=== PATIENT | female | born 1955 | race American Indian/Alaskan Native ===

== ENCOUNTER → 2016-12-21 | Outpatient (CLI) | payer OTHER | END | disposition home or self-care (01) | LOC: CFH 13:10 | PROVIDERS: ATTEND Family Medicine | DX: Z02.9 Encounter for administrative examinations, unspecified (principal) ==

== ENCOUNTER → 2017-12-28 | Outpatient (CLI) | payer OTHER | END | disposition home or self-care (01) | LOC: CFH 13:39 | PROVIDERS: ATTEND Licensed Practical Nurse | DX: Z12.31 Encounter for screening mammogram for malignant neoplasm of breast (principal); Z12.2 Encounter for screening for malignant neoplasm of respiratory organs; Z87.891 Personal history of nicotine dependence | CPT/HCPCS: 77067; G0297 ==

== ENCOUNTER 2018-01-26 07:15 | Inpatient (IN) | payer OTHER ==
[2018-01-19 11:17] VITALS: BP 119/83
[2018-01-25 10:55] LABS: BASOPHILS # (AUTO) 0.04 x10^3/uL (0-0.1); BASOPHILS % (AUTO) 0 % (0-1); EOSINOPHILS # (AUTO) 0.11 x10^3/uL (0-0.4); EOSINOPHILS % (AUTO) 1 % (1-7); LYMPHOCYTES # (AUTO) 4.29 x10^3/uL (1-3.4); LYMPHOCYTES % (AUTO) 27 % (22-44); MD NO; MEAN CORPUSCULAR HEMOGLOBIN 29.8 pg (27.0-34.8); MEAN CORPUSCULAR HGB CONC 33.1 g/dL (32.4-35.8); MEAN CORPUSCULAR VOLUME 90.2 fL (80-100); MEAN PLATELET VOLUME 8.6 fL (7.4-10.4); MONOCYTES # (AUTO) 0.76 x10^3/uL (0.2-0.8); MONOCYTES % (AUTO) 5 % (2-9); NEUTROPHILS # (AUTO) 10.69 x10^3/uL (1.8-6.8); NEUTROPHILS % (AUTO) 67 % (42-75); PLATELET COUNT 245 x10^3/uL (130-400); RED BLOOD COUNT 4.88 x10^6/uL (3.82-5.3); RED CELL DISTRIBUTION WIDTH 13.6 % (9.6-15.2)
[~2018-01-26] VITALS: Ht 142.2 cm; Wt 90.0 kg
[~2018-01-26 07:15] MED LIST: ASPI-691 PO; BUPR100T11 PO; GABA300C10 PO; OXYC10TA6 PO; PHEN37.53 PO; QUET25TA PO
[2018-01-26] MEDS ORDERED: MIDAZOLAM 1 MG/ML, 2ML ONE ×2 (07:43→12:00)
[2018-01-26] MEDS ORDERED: FENTANYL PF 250 MCG/5ML ONE (07:44)
[2018-01-26] MEDS: LACTATED RINGERS 1,000 ML IV SCH ×2 (08:12→13:42)
[2018-01-26] MEDS ORDERED: OxyconTIN ER 10 MG TAB.ER PO ONE (09:30)
[2018-01-26] MEDS ORDERED: FAMOTIDINE 20 MG TABLET PO ONE (09:30)
[2018-01-26] MEDS ORDERED: GABAPENTIN 300 MG CAPSULE PO ONE (09:30)
[2018-01-26] MEDS ORDERED: ACETAMINOPHEN 500 MG TABLET PO ONE (09:30)
[2018-01-26] MEDS ORDERED: CEFAZOLIN 1,000 MG ONE (09:31)
[2018-01-26] MEDS ORDERED: DEXAMETHASONE 4 MG/ML, 1ML ONE (09:31)
[2018-01-26] MEDS ORDERED: GLYCOPYRROLATE 0.2MG/1ML, 5ML ONE (09:31)
[2018-01-26] MEDS ORDERED: NEOSTIGMINE 1 MG/ML, 10ML ONE (09:31)
[2018-01-26] MEDS ORDERED: LIDOCAINE GEL 2%, 5ML ONE ×2 (09:31)
[2018-01-26] MEDS ORDERED: PROPOFOL 10 MG/ML, 20ML ONE (09:31)
[2018-01-26] MEDS ORDERED: SUCCINYLCHOLINE 20 MG/ML, 10ML ONE (09:31)
[2018-01-26] MEDS ORDERED: ONDANSETRON 2MG/ML, 2ML ONE (09:31)
[2018-01-26] MEDS ORDERED: ROCURONIUM 10MG/ML,5ML ONE (09:31)
[2018-01-26] MEDS ORDERED: PHENYLEPHRINE 10 MG/ML ONE (09:45)
[2018-01-26] MEDS ORDERED: BUPIVACAINE/PF-EPI 0.5% 1:200K INFIL ONE (10:31)
[2018-01-26] MEDS ORDERED: THROMBIN 5,000 UNIT VIAL TP ONE (10:32)
[2018-01-26] MEDS ORDERED: BACITRACIN 50,000 UNIT IRRIG ONE (10:32)
[2018-01-26] MEDS: FENTANYL PF 100 MCG/2ML IV PRN ×2 (11:59→12:10)
[2018-01-26] MEDS ORDERED: HYDROmorphone 2 MG/ML, 1ML ONE (12:00)
[2018-01-26] MEDS ORDERED: FENTANYL PF 100 MCG/2ML ONE (12:00)
[2018-01-26] MEDS ORDERED: OXYcodone 5 MG/5 ML ORAL.SOL UDC ONE (12:00)
[2018-01-26] MEDS: HYDROmorphone 2 MG/ML, 1ML IV PRN ×4 (12:05→13:42)
[2018-01-26] MEDS ORDERED: LABETALOL 5MG/ML, 20ML ONE (12:29)
[2018-01-26] MEDS ORDERED: D5%-0.9% NACL+KCL 20MEQ 1,000 ML IV SCH (12:30)
[2018-01-26] MEDS ORDERED: PROMETHAZINE 25 MG/ML, 1ML IM PRN (12:30)
[2018-01-26] MEDS ORDERED: hydrALAzine 20 MG/ML, 1ML IV PRN (12:30)
[2018-01-26] MEDS ORDERED: DIPHENHYDRAMINE 50 MG/ML, 1ML IVPush PRN (12:30)
[2018-01-26] MEDS ORDERED: DIPHENHYDRAMINE 50 MG CAPSULE PO PRN (12:30)
[2018-01-26] MEDS ORDERED: PROMETHAZINE 25 MG/ML, 1ML IV PRN (12:30)
[2018-01-26] MEDS ORDERED: PHARMACY MAY ADJ FOR RENAL FX MC PRN (12:30)
[2018-01-26] MEDS ORDERED: SENNA/DOCUSATE TABLET PO PRN (12:30)
[2018-01-26] MEDS ORDERED: INSULIN REGULAR 100 UNITS/ML, 3ML VIAL SQ-INSULIN PRN (12:30)
[2018-01-26] MEDS ORDERED: LABETALOL 5MG/ML, 20ML IV PRN (12:30)
[2018-01-26] MEDS ORDERED: ONDANSETRON 2MG/ML, 2ML IVPush PRN (12:30)
[2018-01-26] MEDS ORDERED: ONDANSETRON ODT 8 MG PO PRN (12:30)
[2018-01-26] MEDS ORDERED: BISACODYL 10 MG SUPP PR PRN (12:30)
[2018-01-26] MEDS ORDERED: HYDROcodone/APAP 5/325 TABLET PO PRN (12:30)
[2018-01-26] MEDS ORDERED: MIDAZOLAM 1 MG/ML, 2ML IV PRN (12:30)
[2018-01-26] MEDS ORDERED: OXYcodone 5 MG/5 ML ORAL.SOL UDC PO PRN (12:30)
[2018-01-26] MEDS ORDERED: MAGNESIUM HYDROXIDE 8%, 30ML UDC PO PRN (12:30)
[2018-01-26] MEDS ORDERED: CYCLOBENZAPRINE 10 MG TABLET PO PRN (12:30)
[2018-01-26] MEDS ORDERED: CEFAZOLIN PMX 1GM/50ML 50 ML IVPB SCH (12:30)
[2018-01-26] MEDS ORDERED: MORPHINE SULFATE 4 MG/ML, 1ML IVPush PRN (12:30)
[2018-01-26] MEDS ORDERED: LABETALOL 5MG/ML, 20ML IVPush PRN (12:30)
[2018-01-26 14:00] VITALS: BP 108/75
[2018-01-26] MEDS: GABAPENTIN 300 MG CAPSULE PO SCH ×2 (14:50→20:32)
[2018-01-26] MEDS: OXYcodone/APAP 5/325MG TABLET PO PRN ×2 (15:52→20:32)
[2018-01-26] MEDS: SODIUM CHLORIDE 0.9% 1,000 ML IV SCH (16:06)
[2018-01-26] MEDS: CEFAZOLIN PMX 1GM/50ML 50 ML IVPB SCH (17:30)
[2018-01-26] MEDS: morphine SULFATE 10 MG/ML, 1ML IVPush PRN (19:03)
[2018-01-26 20:00] VITALS: BP 119/71
[2018-01-26] MEDS: INSULIN REGULAR 100 UNITS/ML, 3ML VIAL SQ-INSULIN PRN (20:30)
[2018-01-26] MEDS: BUPROPION 100 MG TABLET PO SCH (20:32)
[2018-01-26] MEDS: SODIUM CHLORIDE FLUSH 10ML SYR IVF SCH (21:00)
[2018-01-26] MEDS ORDERED: QUETIAPINE 25MG TABLET PO SCH (21:00)
[2018-01-27] MEDS: morphine SULFATE 10 MG/ML, 1ML IVPush PRN (00:05)
[2018-01-27] MEDS: OXYcodone/APAP 5/325MG TABLET PO PRN ×4 (02:23→15:26)
[2018-01-27] MEDS: CEFAZOLIN PMX 1GM/50ML 50 ML IVPB SCH (02:23)
[2018-01-27 03:45] VITALS: BP 99/64
[2018-01-27] MEDS: SODIUM CHLORIDE 0.9% 1,000 ML IV SCH (06:12)
[2018-01-27] MEDS: GABAPENTIN 300 MG CAPSULE PO SCH ×2 (06:12→14:37)
[2018-01-27] MEDS: INSULIN REGULAR 100 UNITS/ML, 3ML VIAL SQ-INSULIN PRN (06:20)
[2018-01-27 07:46] VITALS: BP 109/65
[2018-01-27] MEDS: BUPROPION 100 MG TABLET PO SCH (07:56)
[2018-01-27] MEDS: SODIUM CHLORIDE FLUSH 10ML SYR IVF SCH (07:56)
[2018-01-27] MEDS ORDERED: ENOXAPARIN 40 MG/0.4 ML SQ SCH (09:00)
[2018-01-27] MEDS ORDERED: PHENTERMINE HCL 37.5 MG HOMEMEDPO SCH (09:00)
[2018-01-27] MEDS ORDERED: OXYC-307 PO (12:24)
[2018-01-27] MEDS ORDERED: CYCL-259 PO (12:24)
[2018-01-27 14:33] VITALS: BP 146/81
== END 2018-01-27 15:40 | disposition home or self-care (01) | DRG 473 ==
LOC: OUT 07:15 → 4NOR 12:09 → EDSTATUS 13:30 → 4NOR 14:03 → DCLOUNGE 01-27 15:31
PROVIDERS: ADMIT Neurological Surgery; ATTEND Neurological Surgery
PROC: 0RG2070 Fusion of 2 or more Cervical Vertebral Joints with Autologous Tissue Substitute, Anterior Approach, Anterior Column, Open Approach (ICD-10-PCS; 2018-01-26)
PROC: 01N10ZZ Release Cervical Nerve, Open Approach (ICD-10-PCS; 2018-01-26)
PROC: 0RB30ZZ Excision of Cervical Vertebral Disc, Open Approach (ICD-10-PCS; principal; 2018-01-26 10:00)
DX: M48.02 Spinal stenosis, cervical region (principal); M50.121 Cervical disc disorder at C4-C5 level with radiculopathy; E11.9 Type 2 diabetes mellitus without complications; M19.90 Unspecified osteoarthritis, unspecified site; G89.4 Chronic pain syndrome; M53.3 Sacrococcygeal disorders, not elsewhere classified; F32.9 Major depressive disorder, single episode, unspecified; F41.9 Anxiety disorder, unspecified; Z88.2 Allergy status to sulfonamides; Z88.0 Allergy status to penicillin; Z88.6 Allergy status to analgesic agent; Z90.710 Acquired absence of both cervix and uterus; Z83.0 Family history of human immunodeficiency virus [HIV] disease; Z82.49 Family history of ischemic heart disease and other diseases of the circulatory system; Z88.1 Allergy status to other antibiotic agents
CPT/HCPCS: 36415; 72040; J3490; 82962; 85025; 86850; 86900; C1713; J0690; J1100; J1170; J1650; J1815; J2250; J2405; J2704; J2710; J3010; C1776; J0330; J2270; J2370; J7030; J7120

== ENCOUNTER → 2018-12-29 | Outpatient (CLI) | payer OTHER, MEDICARE ==
[~2018-12-29] MED LIST changes: +CYCL-259 PO; +OXYC-307 PO; -QUET25TA PO; +QUET25TA7 PO
== END | disposition home or self-care (01) ==
LOC: CFH 14:17
PROVIDERS: ATTEND Licensed Practical Nurse
DX: Z12.2 Encounter for screening for malignant neoplasm of respiratory organs (principal); J84.9 Interstitial pulmonary disease, unspecified; Z87.891 Personal history of nicotine dependence
CPT/HCPCS: G0297

== ENCOUNTER → 2019-05-26 | Outpatient (CLI) | payer MEDICARE ==
[~2019-05-26] MED LIST changes: +IRON1CAP PO
== END | disposition home or self-care (01) ==
LOC: CFH 13:43
PROVIDERS: ATTEND Family Medicine Adult Medicine
DX: Z12.31 Encounter for screening mammogram for malignant neoplasm of breast (principal); F10.21 Alcohol dependence, in remission
CPT/HCPCS: 77067

== ENCOUNTER 2019-08-11 12:35 | Emergency (ER) | payer MEDICARE, OTHER ==
[~2019-08-11] VITALS: Ht 142.2 cm; Wt 78.5 kg
--- NOTE | 2019-08-11 13:01 | NUR ---
C-COLLAR PLACED IN TRIAGE, PT IN WHEELCHAIR TO ROOM 10
[2019-08-11] MEDS ORDERED: OXYcodone/APAP 5/325MG TABLET ONE (13:15)
[2019-08-11] MEDS ORDERED: KETOROLAC 30 MG/1 ML ONE (13:15)
[2019-08-11] MEDS ORDERED: DIAZEPAM 5 MG TABLET ONE (13:15)
[2019-08-11] MEDS ORDERED: KETOROLAC 30 MG/1 ML IM ONE (13:30)
[2019-08-11] MEDS ORDERED: DIAZEPAM 5 MG TABLET PO ONE (13:30)
[2019-08-11] MEDS ORDERED: OXYcodone/APAP 5/325MG TABLET PO ONE (13:30)
--- NOTE | 2019-08-11 15:49 | NUR ---
C-spine cleared, cervical collar removed & pt to radiology for remainder of studies.
[2019-08-11 16:19] VITALS: BP 132/78
== END 2019-08-11 16:34 | disposition home or self-care (01) ==
LOC: ED 16:30
DX: S16.1XXA Strain of muscle, fascia and tendon at neck level, initial encounter (principal); S43.402A Unspecified sprain of left shoulder joint, initial encounter; S39.012A Strain of muscle, fascia and tendon of lower back, initial encounter; E11.9 Type 2 diabetes mellitus without complications; I10 Essential (primary) hypertension; V49.59XA Passenger injured in collision with other motor vehicles in traffic accident, initial encounter; Y93.89 Activity, other specified; Y92.410 Unspecified street and highway as the place of occurrence of the external cause; Y99.8 Other external cause status
CPT/HCPCS: 72020; 72110; 72125; 73030; 96372; 99284; J1885